=== PATIENT | female | born 1960 | race Caucasian/White ===

== ENCOUNTER 2016-12-17 15:28 | Emergency (ER) | payer MEDICAID ==
[~2016-12-17] VITALS: Ht 160 cm; Wt 70.8 kg
[~2016-12-17 15:28] MED LIST: AMOXICILLIN PO; DARVOCET-N 1001 TAB PO; DICLOFENAC PO; FLEXERIL PO; FLEXERIL10 M1 PO; FLEXERIL10 MG PO; IBUPROFEN PO; KETOPROFEN PO; LORTAB 5; LORTAB 5/500 TA1 TA1 PO; MEDROL PO; MEDROL4 MG/DOSE- PO; MOBIC PO; MUCINEX DM TABL1 BOX PO; MULTI-VITAMIN1 TAB; NO MEDICATIONS; ORUDIS75 M1 DOB; PEN-VEE K PO; PERCOCET 5-3251 TAB PO; PHENERGAN/CODEIN5 ML PO; PREDNISOLONE5 MG PO; PREDNISONE PO; PREDNISONE5 MG PO; PROTONIX PO; SKELAXIN PO; TESSALON200 MG PO; THERAFLU COL245.5 ML PO; TYLOX 5/500 CAP1 CAP PO; ULTRAM PO; VICODIN 5/1 TAB 5/50 PO; VICODIN 5/500 T1 TAB PO; VICODIN PO; VOLTAREN75 MG PO; ZANAFLEX PO; ZITHROMAX1 G/PKT PO
== END 2016-12-17 18:00 | disposition left against medical advice (07) ==
LOC: CED 15:28
DX: Z53.21 Procedure and treatment not carried out due to patient leaving prior to being seen by health care provider (principal)